=== PATIENT | male | born 1970 | race Caucasian/White ===

== ENCOUNTER 2016-08-06 22:37 | Emergency (ER) | payer SELFPAY ==
[~2016-08-06] VITALS: Ht 165.1 cm; Wt 63.0 kg
[~2016-08-06 22:37] MED LIST: ATRITAB; NAPR550 PO; Z.0.NO CURRENT MEDS
[2016-08-06 22:43] VITALS: BP 130/85; PULSE 86; RESP 18; TEMP 98.2; O2SAT 91
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
[2016-08-07 00:03] LABS: AUTOMATED NEUTROPHIL # 1.6 TH/MM3 (1.8-7.7); BASOPHIL % 0.6 % (0.0-2.0); EOSINOPHIL # 0.1 TH/MM3 (0-0.4); EOSINOPHIL % 3.3 % (0.0-4.0); HEMATOCRIT 45.7 % (39.0-51.0); HEMO FLAGS DIFF FINAL; LYMPH % 42.6 % (9.0-44.0); LYMPHOCYTE # 1.7 TH/MM3 (1.0-4.8); MEAN CELL VOLUME 91.7 FL (80.0-100.0); MEAN CORPUSCULAR HEMOGLOBIN 30.2 PG (27.0-34.0); MEAN CORPUSCULAR HGB CONC 32.9 % (32.0-36.0); MONO % 13.5 % (0.0-8.0); PLATELET COUNT 174 TH/MM3 (150-450); RED BLOOD COUNT 4.98 MIL/MM3 (4.50-5.90); RED CELL DISTRIBUTION WIDTH 14.8 % (11.6-17.2); WHITE BLOOD COUNT 4.1 TH/MM3 (4.0-11.0)
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
[2016-08-07 00:12] LABS: INTERNATIONAL NORMALIZED RATIO 0.9 RATIO; PROTHROMBIN TIME - PATIENT 10.4 SEC (9.8-11.6)
[2016-08-07 00:33] LABS: BICARBONATE 22.8 MEQ/L (21.0-32.0)
[2016-08-07 00:40] LABS: POTASSIUM 4.6 MEQ/L (3.5-5.1)
[2016-08-07] MEDS ORDERED: IOHEXOL 350 MG/ML 10 ML VIAL (for RAD DIAG) IV ONE (01:17)
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
[2016-08-07 04:47] VITALS: BP 118/68; PULSE 88; RESP 16; O2SAT 98
[2016-08-07 07:23] VITALS: BP 113/66; PULSE 97; RESP 20; O2SAT 98
[2016-08-07 10:45] VITALS: BP 117/63
== END 2016-08-07 10:45 | disposition home or self-care (01) ==
LOC: NEPE 22:37
DX: S80.811A Abrasion, right lower leg, initial encounter (principal); S80.812A Abrasion, left lower leg, initial encounter; F10.920 Alcohol use, unspecified with intoxication, uncomplicated; F17.200 Nicotine dependence, unspecified, uncomplicated; R51 Headache; R07.9 Chest pain, unspecified; V03.10XA Pedestrian on foot injured in collision with car, pick-up truck or van in traffic accident, initial encounter; Y90.8 Blood alcohol level of 240 mg/100 ml or more
CPT/HCPCS: 70450; 71010; 71260; 72125; 72170; 73552; 73564; 74177; 80048; 80307; 85025; 85610; 85730; 99285; Q9967

== ENCOUNTER 2016-08-07 13:45 | Emergency (ER) | payer SELFPAY ==
[2016-08-07 13:49] VITALS: BP 119/74; PULSE 104; RESP 20; TEMP 98; O2SAT 96
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
== END 2016-08-07 14:35 | disposition home or self-care (01) ==
LOC: NEPD 13:45
DX: M79.605 Pain in left leg (principal); Z76.5 Malingerer [conscious simulation]; Z59.0 Homelessness
CPT/HCPCS: 99283; E0113